=== PATIENT | female | born 1980 | race African-American/Black ===

== ENCOUNTER 2016-03-15 22:37 | Emergency (ER) | payer OTHER ==
[~2016-03-15] VITALS: Ht 170.2 cm; Wt 79.2 kg
[~2016-03-15 22:37] MED LIST: ADVAIR 250-501 EACH IH; ADVAIR 250/501 DISK IH; ALBUTEROL SULF8.5 GM IH; ASACOL HD800 MG PO; AUGMENTIN875 MG PO; Amaryl PO; Asacol PO; Aspirin E.C. PO; Augmentin PO; BACTRIM,SEPT1 TABLET PO; BENTYL10 MG PO; BENTYL20 MG PO; CALCIUM CARBONATE PO; CEFTIN500 MG PO; CIPRO500 MG PO; DAILY VITAMIN1 EAC4 PO; DAILY VITAMIN1 EAC8 PO; DEPAKOTE125 MG PO; DEPAKOTE500 MG PO; DIABETA5 MG PO; DILAUDID2 MG PO; DURAGESIC75 MCG TD; Depakote PO; ENDOCET 5-3251 EACH PO; FENTANYL1 EAC1 TD; FEOSOL PO; FEOSOL325 MG PO; FEROSUL325 MG PO; FLAGYL PO; FLAGYL500 MG PO; Flagyl PO; GLUCOPHAGE XR,500 MG PO; GLUCOPHAGE XR500 MG PO; GLUCOPHAGE1000 MG PO; GLUCOPHAGE500 MG PO; GLUCOTROL5 MG PO; Glucophage PO; Glucotrol PO; HUMALOG100 UNIT/1 SC; HUMALOG100 UNIT/2; HUMALOG100 UNITS/ SC; HUMULIN; HUMULIN 50100 UNIT/1 SQ; HYDROCHLOROTHIA25 MG PO; Humulin R SC; KEFLEX500 MG PO; KLONOPIN1 MG PO; LANTUS 10100 UNITS/ SC; LANTUS 3 M100 UNITS1 SC; LANTUS100 UNIT/1 SQ; LANTUS100 UNIT/2 SQ; LEVAQUIN500 MG PO; LEVSIN0.125 MG PO; LISINOPRIL10 MG PO; LISINOPRIL40 MG PO; LORTAB 5-325 M1 EACH PO; LOW DOSE ASPIRI81 M1 PO; MACROBID100 MG PO; METOPROLOL SUC100 MG PO; METRONIDAZOLE500 MG PO; Motrin PO; NOVOLOG PE100 UNITS/ SC; OXAYDO5 MG PO; OXYCODONE HCL10 MG PO; OXYCODONE HCL5 MG PO; PENTASA250 MG PO; PENTASA500 MG PO; PERCOCET 5/31 TABLET PO; PREDNISONE PO; PRINIVIL10 MG PO; PROBIOTIC1 EAC1 PO; PROMETHAZINE HC25 M1 PO; PROTONIX40 MG PO; PROVENTIL17 GM IH; PROZAC20 MG PO; PROzac PO; PYRIDIUM200 MG PO; Percocet 5/325,Endoc PO; REGLAN10 MG PO; REMERON30 M2 PO; REMICAID; TENORMIN50 MG PO; TOPROL PO; TOPROL XL100 MG PO; TOPROL XL50 MG PO; TOPROL XL6.25 MG PO; TYLENOL WITH C1 EACH PO; Tenormin PO; Ultram PO; VANCOCIN 250 M250 MG PO; VANCOCIN HCL125 MG PO; VANCOMYCIN HCL125 MG PO; VANCOMYCIN HCL250 MG PO; VENTOLIN HFA18 GM IH; VICODIN 5-3001 EACH PO; VITAMIN D; VITAMIN D1000 INTUN PO; VITAMIN D31000 UNIT PO; VITAMIN D3400 UNI1 PO; ZOFRAN ODT4 MG PO; ZOFRAN ODT4 MG SL; ZOFRAN ODT8 MG PO; ZOFRAN4 MG PO; predniSONE PO
[2016-03-15 23:46] LABS: HEMATOCRIT 32.1 % (36.0-46.0); MCH 29.1 PG (29.0-34.0); MCHC 32.7 G/DL (30.0-36.0); MCV 88.9 FL (83-99); MEAN PLAT.VOLUME 9.2 uM^3 (9.5-12.4); PLATELET COUNT 295 K/uL (156-360); RBC DIS.WIDTH-CV 15.9 % (11.8-14.6); RBC DIS.WIDTH-SD 50.3 % (39-53); RED BLOOD COUNT 3.61 M/uL (3.80-5.20); WHITE BLOOD COUNT 7.9 K/uL (4.1-10.2)
[2016-03-15 23:55] LABS: CHLORIDE 108 mEq/L (99-109); POTASSIUM 3.7 mEq/L (3.7-5.4); SODIUM 140 mEq/L (136-147)
[2016-03-15 23:57] LABS: GLUCOSE 143 mg/dL (70-99)
[2016-03-15 23:59] LABS: ANION GAP 4 MEQ/L (2-14); TOTAL BILIRUBIN 0.2 mg/dL (0.0-1.0)
[2016-03-16 00:01] LABS: ALKALINE PHOSPHATASE 84 IU/L (3-129); GFR ESTIMATE (CALCULATED) > 59 mL/min/
[2016-03-16 00:02] LABS: UREA NITROGEN (BUN) 10 mg/dL (9-23)
[2016-03-16 00:10] LABS: QUANTITATIVE HCG < 4.0 MIU/ML
[2016-03-16 03:31] LABS: ADD MIUA? YES; BILIRUBIN NEGATIVE; BLOOD SMALL; COLOR YELLOW ((YELLOW)); GLUCOSE (STRIP) NEGATIVE; KETONES NEGATIVE; LEUKOCYTES LARGE; NITRITE POSITIVE; PROTEIN (STRIP) TRACE; SPECIFIC GRAVITY 1.028 (1.000-1.030); UROBILINOGEN 0.2 MG/DL (0.2-1.0)
[2016-03-16 03:44] VITALS: BP 134/87
[2016-03-16 03:50] LABS: BACTERIA 4+; CASTS NONE SEEN /LPF; CRYSTALS NONE SEEN; EPITHELIAL CELLS 1+; MUCUS 1+; RED BLOOD CELLS RARE /HPF (0-5); UCUL ADDED? YES; WHITE BLOOD CELLS TNTC /HPF (0-5)
== END 2016-03-16 03:44 | disposition home or self-care (01) ==
LOC: EME 22:37 → RME 22:37
DX: R19.7 Diarrhea, unspecified (principal); R10.9 Unspecified abdominal pain; K50.90 Crohn's disease, unspecified, without complications; Z93.3 Colostomy status; Z85.038 Personal history of other malignant neoplasm of large intestine; R11.2 Nausea with vomiting, unspecified; I10 Essential (primary) hypertension; J45.909 Unspecified asthma, uncomplicated; E11.9 Type 2 diabetes mellitus without complications; Z79.4 Long term (current) use of insulin; F17.200 Nicotine dependence, unspecified, uncomplicated
CPT/HCPCS: 74176; 80053; 81003; 84702; 85027; 87077; 87086; 87186; 87493; 99281; 99284

== ENCOUNTER 2016-03-24 20:32 | Emergency (ER) | payer OTHER ==
[~2016-03-24] VITALS: Ht 170.2 cm; Wt 78.6 kg
[2016-03-24 21:20] LABS: HEMATOCRIT 33.4 % (36.0-46.0); MCH 28.9 PG (29.0-34.0); MCHC 32.3 G/DL (30.0-36.0); MCV 89.3 FL (83-99); MEAN PLAT.VOLUME 9.2 uM^3 (9.5-12.4); PLATELET COUNT 306 K/uL (156-360); RBC DIS.WIDTH-CV 15.6 % (11.8-14.6); RBC DIS.WIDTH-SD 50.3 % (39-53); RED BLOOD COUNT 3.74 M/uL (3.80-5.20); WHITE BLOOD COUNT 7.7 K/uL (4.1-10.2)
[2016-03-24 21:22] LABS: ADD MIUA? YES; BILIRUBIN NEGATIVE; BLOOD TRACE; COLOR YELLOW ((YELLOW)); GLUCOSE (STRIP) NEGATIVE; KETONES NEGATIVE; LEUKOCYTES LARGE; PH, URINE 5.5 (5-8); PROTEIN (STRIP) 30; SPECIFIC GRAVITY 1.025 (1.000-1.030); UROBILINOGEN 0.2 MG/DL (0.2-1.0)
[2016-03-24 21:28] LABS: CHLORIDE 106 mEq/L (99-109); POTASSIUM 4.3 mEq/L (3.7-5.4); SODIUM 137 mEq/L (136-147)
[2016-03-24 21:31] LABS: GLUCOSE 108 mg/dL (70-99)
[2016-03-24 21:32] LABS: ANION GAP 8 MEQ/L (2-14)
[2016-03-24 21:33] LABS: TOTAL BILIRUBIN 0.2 mg/dL (0.0-1.0)
[2016-03-24 21:34] LABS: ALKALINE PHOSPHATASE 83 IU/L (3-129); GFR ESTIMATE (CALCULATED) > 59 mL/min/
[2016-03-24 21:35] LABS: UREA NITROGEN (BUN) 15 mg/dL (9-23)
[2016-03-24] MEDS ORDERED: PREDNISONE20 MG PO (21:41)
[2016-03-24] MEDS ORDERED: BENTYL10 MG PO (21:41)
[2016-03-24 21:43] LABS: QUANTITATIVE HCG < 4.0 MIU/ML
[2016-03-24 21:46] LABS: BACTERIA 3+; EPITHELIAL CELLS 1+; MUCUS 1+; UCUL ADDED? YES; WHITE BLOOD CELLS 40-50 /HPF (0-5)
[2016-03-24 21:47] LABS: CASTS NONE SEEN /LPF; CRYSTALS NONE SEEN; NITRITE POSITIVE
[2016-03-24 22:29] VITALS: BP 144/90
== END 2016-03-24 22:36 | disposition home or self-care (01) ==
LOC: EME 20:32 → RME 20:32
DX: R10.9 Unspecified abdominal pain (principal); K50.90 Crohn's disease, unspecified, without complications; E11.9 Type 2 diabetes mellitus without complications; I10 Essential (primary) hypertension; F17.200 Nicotine dependence, unspecified, uncomplicated; Z93.2 Ileostomy status; Z85.038 Personal history of other malignant neoplasm of large intestine
CPT/HCPCS: 80053; 81003; 84702; 85027; 87077; 87086; 87186; 99281; 99284; J7512

== ENCOUNTER 2016-04-06 12:00 | Emergency (ER) | payer OTHER ==
[~2016-04-06] VITALS: Ht 170.2 cm; Wt 76.2 kg
[~2016-04-06 12:00] MED LIST changes: +PREDNISONE20 MG PO
[2016-04-06] MEDS ORDERED: TYLENOL WITH C1 EACH PO (14:17)
[2016-04-06 14:31] VITALS: BP 129/87
[2016-04-06] MEDS ORDERED: ROXICODONE5 MG PO (15:31)
== END 2016-04-06 14:32 | disposition home or self-care (01) ==
LOC: EME 12:00
PROC: 0T9B70Z Drainage of Bladder with Drainage Device, Via Natural or Artificial Opening (ICD-10-PCS; principal; 2016-04-06)
DX: Z46.6 Encounter for fitting and adjustment of urinary device (principal); E11.9 Type 2 diabetes mellitus without complications; I10 Essential (primary) hypertension; I25.2 Old myocardial infarction; F17.200 Nicotine dependence, unspecified, uncomplicated; Z87.442 Personal history of urinary calculi; Z88.6 Allergy status to analgesic agent
CPT/HCPCS: 99281; 99284

== ENCOUNTER 2016-05-02 11:19 | Emergency (ER) | payer OTHER ==
[~2016-05-02] VITALS: Ht 170.2 cm; Wt 77.4 kg
[~2016-05-02 11:19] MED LIST changes: +ROXICODONE5 MG PO
[2016-05-02 14:41] VITALS: BP 117/82
== END 2016-05-02 14:43 | disposition home or self-care (01) ==
LOC: EME 11:19
PROC: 0T9B70Z Drainage of Bladder with Drainage Device, Via Natural or Artificial Opening (ICD-10-PCS; principal; 2016-05-02)
DX: Z46.6 Encounter for fitting and adjustment of urinary device (principal); E11.9 Type 2 diabetes mellitus without complications; I10 Essential (primary) hypertension; Z87.442 Personal history of urinary calculi; I25.2 Old myocardial infarction; K21.9 Gastro-esophageal reflux disease without esophagitis; Z93.2 Ileostomy status; Z85.038 Personal history of other malignant neoplasm of large intestine; Z79.4 Long term (current) use of insulin; F17.200 Nicotine dependence, unspecified, uncomplicated
CPT/HCPCS: 81003; 99281; 99283

== ENCOUNTER 2016-05-13 19:48 | Emergency (ER) | payer OTHER ==
[~2016-05-13] VITALS: Ht 170.2 cm; Wt 76.7 kg
[2016-05-13 20:31] LABS: CHLORIDE 109 mEq/L (99-109); SODIUM 142 mEq/L (136-147)
[2016-05-13 20:33] LABS: GLUCOSE 122 mg/dL (70-99)
[2016-05-13 20:34] LABS: HEMATOCRIT 33.8 % (36.0-46.0); MCH 28.5 PG (29.0-34.0); MCHC 31.7 G/DL (30.0-36.0); MCV 89.9 FL (83-99); MEAN PLAT.VOLUME 9.3 uM^3 (9.5-12.4); PLATELET COUNT 308 K/uL (156-360); RBC DIS.WIDTH-CV 14.6 % (11.8-14.6); RED BLOOD COUNT 3.76 M/uL (3.80-5.20); WHITE BLOOD COUNT 7.3 K/uL (4.1-10.2)
[2016-05-13 20:35] LABS: ANION GAP 6 MEQ/L (2-14); TOTAL BILIRUBIN 0.2 mg/dL (0.0-1.0)
[2016-05-13 20:37] LABS: ALKALINE PHOSPHATASE 99 IU/L (3-129); GFR ESTIMATE (CALCULATED) > 59 mL/min/
[2016-05-13 20:38] LABS: UREA NITROGEN (BUN) 10 mg/dL (9-23)
[2016-05-13 20:46] LABS: QUANTITATIVE HCG < 4.0 MIU/ML
[2016-05-13 20:56] VITALS: BP 135/86
== END 2016-05-13 20:57 | disposition home or self-care (01) ==
LOC: EME 19:48
DX: R10.12 Left upper quadrant pain (principal); R11.2 Nausea with vomiting, unspecified; R19.7 Diarrhea, unspecified; E11.9 Type 2 diabetes mellitus without complications; Z79.4 Long term (current) use of insulin; Z79.891 Long term (current) use of opiate analgesic; Z85.038 Personal history of other malignant neoplasm of large intestine; J45.909 Unspecified asthma, uncomplicated; F17.200 Nicotine dependence, unspecified, uncomplicated
CPT/HCPCS: 74000; 80053; 81003; 84702; 85027; 99281; 99283

== ENCOUNTER 2016-05-31 20:18 | Emergency (ER) | payer OTHER ==
[~2016-05-31] VITALS: Ht 170.2 cm; Wt 79.6 kg
[2016-05-31 21:39] VITALS: BP 132/87
== END 2016-05-31 21:39 | disposition home or self-care (01) ==
LOC: EME 20:18 → EXP 20:18
PROC: 0T2BX0Z Change Drainage Device in Bladder, External Approach (ICD-10-PCS; principal; 2016-05-31)
DX: T83.021A Displacement of indwelling urethral catheter, initial encounter (principal); E11.9 Type 2 diabetes mellitus without complications; Z79.4 Long term (current) use of insulin; J45.909 Unspecified asthma, uncomplicated; Z85.038 Personal history of other malignant neoplasm of large intestine; Z87.891 Personal history of nicotine dependence
CPT/HCPCS: 99281; 99284

== ENCOUNTER 2016-07-01 18:07 | Emergency (ER) | payer OTHER ==
[~2016-07-01] VITALS: Ht 170.2 cm; Wt 77.1 kg
[2016-07-01 18:20] VITALS: BP 165/89
== END 2016-07-01 18:49 | disposition left against medical advice (07) ==
LOC: EME 18:07
DX: K50.90 Crohn's disease, unspecified, without complications (principal); Z53.21 Procedure and treatment not carried out due to patient leaving prior to being seen by health care provider

== ENCOUNTER 2016-07-20 12:55 | Emergency (ER) | payer OTHER | END 2016-07-20 13:07 | disposition left against medical advice (07) | LOC: EME 12:55 | DX: R10.9 Unspecified abdominal pain (principal); Z53.21 Procedure and treatment not carried out due to patient leaving prior to being seen by health care provider ==

== ENCOUNTER 2016-07-28 11:45 | Inpatient (IN) | payer OTHER ==
[~2016-07-28] VITALS: Ht 170.2 cm; Wt 81.4 kg
[2016-07-28] MEDS ORDERED: METHADONE HCL40 MG PO (13:08)
[2016-07-28 14:19] LABS: EOSINOPHIL (%) 0.8 % (0-5); EOSINOPHIL COUNT 0.1 K/uL (0-0.3); HEMATOCRIT 41.4 % (36.0-46.0); IMMATURE GRANULOCYTE (%) 0.6 % (0.0-0.7); INSTRUMENT ABS NEUTROPHIL CT 3.9 K/uL; LYMPHOCYTE COUNT 1.8 K/uL (1.0-2.8); MCH 28.9 PG (29.0-34.0); MCHC 32.1 G/DL (30.0-36.0); MONOCYTE COUNT 0.6 K/uL (0-0.8); NEUTROPHIL (%) 61.4 % (45-76); NEUTROPHIL COUNT 3.9 K/uL (1.8-6.4); PLATELET COUNT 229 K/uL (156-360); RBC DIS.WIDTH-CV 14.3 % (11.8-14.6); RBC DIS.WIDTH-SD 47.3 % (39-53); WHITE BLOOD COUNT 6.4 K/uL (4.1-10.2)
[2016-07-28 14:31] LABS: CHLORIDE 101 mEq/L (99-109); POTASSIUM 4.1 mEq/L (3.7-5.4); SODIUM 137 mEq/L (136-147)
[2016-07-28 14:33] LABS: GLUCOSE 95 mg/dL (70-99)
[2016-07-28 14:34] LABS: ANION GAP 15 MEQ/L (2-14)
[2016-07-28 14:35] LABS: TOTAL BILIRUBIN 0.4 mg/dL (0.0-1.0)
[2016-07-28 14:37] LABS: ALKALINE PHOSPHATASE 88 IU/L (3-129); GFR ESTIMATE (CALCULATED) > 59 mL/min/
[2016-07-28 14:38] LABS: UREA NITROGEN (BUN) 12 mg/dL (9-23)
[2016-07-28 14:40] LABS: LIPASE 23 U/L (1.0-51.0)
[2016-07-28 15:07] VITALS: BP 158/88
[2016-07-28 15:08] LABS: ADD MIUA? YES; BILIRUBIN NEGATIVE; BLOOD MODERATE; COLOR YELLOW ((YELLOW)); GLUCOSE (STRIP) NEGATIVE; KETONES 20; LEUKOCYTES MODERATE; NITRITE POSITIVE; PROTEIN (STRIP) 100; SPECIFIC GRAVITY 1.016 (1.000-1.030); UROBILINOGEN 0.2 MG/DL (0.2-1.0)
[2016-07-28 15:45] LABS: CASTS NONE SEEN /LPF; EPITHELIAL CELLS 3+ /HPF; MUCUS 1+ /LPF
[2016-07-28 15:46] LABS: BACTERIA 4+ /HPF; RED BLOOD CELLS 0-5 /HPF (0-5); WHITE BLOOD CELLS 30-40 /HPF (0-5)
[2016-07-28] MEDS ORDERED: HUMALOG100 UNIT/2 SC (16:37)
[2016-07-28] MEDS ORDERED: LANTUS 3 M100 UNITS1 SC (16:39)
[2016-07-29 08:15] VITALS: BP 133/78
[2016-07-29 09:32] LABS: ANION GAP 9 MEQ/L (2-14); CHLORIDE 103 MEQ/L (99-109); GFR ESTIMATE (CALCULATED) > 59 mL/min/; GLUCOSE 140 mg/dL (70-99); POTASSIUM 3.6 MEQ/L (3.7-5.4); SAMPLE HEMOLYSIS CHECK 0; SAMPLE ICTERIC CHECK 0; SAMPLE LIPEMIA CHECK 0; SODIUM 136 MEQ/L (136-147); UREA NITROGEN (BUN) 11 mg/dL (9-23)
[2016-07-29 09:34] LABS: HEMATOCRIT 34.6 % (36.0-46.0); MCH 28.8 PG (29.0-34.0); MCHC 32.1 G/DL (30.0-36.0); MCV 89.9 FL (83-99); MEAN PLAT.VOLUME 9.2 uM^3 (9.5-12.4); RBC DIS.WIDTH-SD 46.2 % (39-53); RED BLOOD COUNT 3.85 M/uL (3.80-5.20)
[2016-07-29 09:35] LABS: PLATELET COUNT 309 K/uL (156-360)
[2016-07-30 07:10] VITALS: BP 154/85
[2016-07-30 10:47] LABS: EOSINOPHIL (%) 2.2 % (0-5); EOSINOPHIL COUNT 0.1 K/uL (0-0.3); HEMATOCRIT 31.5 % (36.0-46.0); IMMATURE GRANULOCYTE (%) 0.4 % (0.0-0.7); INSTRUMENT ABS NEUTROPHIL CT 2.9 K/uL; LYMPHOCYTE COUNT 1.3 K/uL (1.0-2.8); MCH 30.1 PG (29.0-34.0); MEAN PLAT.VOLUME 9.5 uM^3 (9.5-12.4); MONOCYTE (%) 12.7 % (3-12); MONOCYTE COUNT 0.6 K/uL (0-0.8); NEUTROPHIL (%) 58.3 % (45-76); NEUTROPHIL COUNT 2.9 K/uL (1.8-6.4); PLATELET COUNT 269 K/uL (156-360); RBC DIS.WIDTH-CV 14.2 % (11.8-14.6); RBC DIS.WIDTH-SD 47.4 % (39-53); RED BLOOD COUNT 3.46 M/uL (3.80-5.20)
[2016-07-30 11:10] LABS: ANION GAP 8 MEQ/L (2-14); CHLORIDE 106 MEQ/L (99-109); GFR ESTIMATE (CALCULATED) > 59 mL/min/; GLUCOSE 145 mg/dL (70-99); POTASSIUM 3.8 MEQ/L (3.7-5.4); SAMPLE HEMOLYSIS CHECK 0; SAMPLE ICTERIC CHECK 0; SAMPLE LIPEMIA CHECK 0; SODIUM 135 MEQ/L (136-147); UREA NITROGEN (BUN) 6 mg/dL (9-23)
[2016-07-30 15:46] VITALS: BP 120/67
[2016-07-30 22:31] VITALS: BP 119/83
[2016-07-31 07:17] VITALS: BP 127/77
[2016-07-31 07:43] LABS: HEMATOCRIT 33.8 % (36.0-46.0); MCHC 32.2 G/DL (30.0-36.0); MCV 89.9 FL (83-99); MEAN PLAT.VOLUME 9.4 uM^3 (9.5-12.4); PLATELET COUNT 316 K/uL (156-360); RBC DIS.WIDTH-CV 14.2 % (11.8-14.6); RED BLOOD COUNT 3.76 M/uL (3.80-5.20); WHITE BLOOD COUNT 6.1 K/uL (4.1-10.2)
[2016-07-31 08:05] LABS: CHLORIDE 108 mEq/L (99-109); POTASSIUM 3.9 mEq/L (3.7-5.4); SODIUM 138 mEq/L (136-147)
[2016-07-31 08:08] LABS: ANION GAP 9 MEQ/L (2-14); GLUCOSE 74 mg/dL (70-99)
[2016-07-31 08:11] LABS: GFR ESTIMATE (CALCULATED) > 59 mL/min/
[2016-07-31 08:12] LABS: UREA NITROGEN (BUN) 7 mg/dL (9-23)
[2016-07-31 08:39] LABS: ABS NEUTROPHIL COUNT 3.6; ANISOCYTOSIS 1+; BAND NEUTROPHILS 0.9 % (0-8.0); EOSINOPHIL ABS CT 0.5; EOSINOPHILS 8.8 % (0-5.0); INSTRUMENT ABS NEUTROPHIL CT 2.9 K/uL; LYMPHOCYTES 24.8 % (15.0-45.0); MACROCYTES 1+; MYELOCYTES 0.9 %; PLAT.SUFFICIENCY ADEQUATE; SEG.NEUTROPHILS 57.5 % (46.0-76.0)
[2016-07-31 15:25] VITALS: BP 130/78
[2016-08-01 00:01] VITALS: BP 116/68
[2016-08-01 05:51] LABS: POINT-OF-CARE METER ID UU13113725
[2016-08-01] MEDS ORDERED: COLO-40 MC (08:14)
[2016-08-01] MEDS ORDERED: LEVAQUIN500 MG PO (08:14)
[2016-08-01] MEDS ORDERED: TRAMADOL HCL50 MG PO (08:14)
[2016-08-01 09:42] VITALS: BP 109/55
== END 2016-08-01 10:35 | disposition home or self-care (01) | DRG 389 ==
LOC: EXP 11:45 → EME 11:45 → 5EAST 16:45 → EDOF 16:45 → 5EAST 19:25
PROVIDERS: Internal Medicine; Physician Assistant; Surgery
DX: K56.5 Intestinal adhesions [bands] with obstruction (postinfection) (principal); K50.90 Crohn's disease, unspecified, without complications; N39.0 Urinary tract infection, site not specified; I10 Essential (primary) hypertension; N39.498 Other specified urinary incontinence; F11.20 Opioid dependence, uncomplicated; N31.9 Neuromuscular dysfunction of bladder, unspecified; K21.9 Gastro-esophageal reflux disease without esophagitis; E11.9 Type 2 diabetes mellitus without complications; F31.9 Bipolar disorder, unspecified; Z88.5 Allergy status to narcotic agent; Z93.2 Ileostomy status; Z87.442 Personal history of urinary calculi; Z87.440 Personal history of urinary (tract) infections; Z79.4 Long term (current) use of insulin; Z90.49 Acquired absence of other specified parts of digestive tract; Z79.84 Long term (current) use of oral hypoglycemic drugs; Z87.891 Personal history of nicotine dependence; Z83.79 Family history of other diseases of the digestive system; Z82.49 Family history of ischemic heart disease and other diseases of the circulatory system
CPT/HCPCS: 74177; 80048; 80053; 81003; 82948; 83690; 85025; 85027; 87040; 94640; 94640 76; 99281; 99285; J1170; J1815; J1885; J1956; J2405; J2765; J3010; J7030; J7050; S0028

== ENCOUNTER 2016-10-29 13:32 | Emergency (ER) | payer OTHER ==
[~2016-10-29] VITALS: Ht 170.2 cm; Wt 72.9 kg
[~2016-10-29 13:32] MED LIST changes: +COLO-40 MC; +HUMALOG100 UNIT/2 SC; +METHADONE HCL40 MG PO; +TRAMADOL HCL50 MG PO
[2016-10-29 14:45] LABS: MCH 28.8 PG (29.0-34.0); MCHC 32.3 G/DL (30.0-36.0); MCV 89.3 FL (83-99); MEAN PLAT.VOLUME 9.8 uM^3 (9.5-12.4); PLATELET COUNT 292 K/uL (156-360); RBC DIS.WIDTH-CV 14.3 % (11.8-14.6); RBC DIS.WIDTH-SD 46.2 % (39-53); RED BLOOD COUNT 3.92 M/uL (3.80-5.20); WHITE BLOOD COUNT 7.9 K/uL (4.1-10.2)
[2016-10-29 14:47] LABS: ADD MIUA? YES; BILIRUBIN NEGATIVE; BLOOD SMALL; COLOR YELLOW ((YELLOW)); GLUCOSE (STRIP) NEGATIVE; KETONES 5; LEUKOCYTES TRACE; NITRITE NEGATIVE; PROTEIN (STRIP) 30; UROBILINOGEN 0.2 MG/DL (0.2-1.0)
[2016-10-29 14:58] LABS: BACTERIA NONE SEEN /HPF; EPITHELIAL CELLS 1+ /HPF; MUCUS 3+ /LPF; RED BLOOD CELLS 0-5 /HPF (0-5); UCUL ADDED? YES
[2016-10-29 15:00] LABS: CHLORIDE 106 mEq/L (99-109); POTASSIUM 4.2 mEq/L (3.7-5.4); SODIUM 139 mEq/L (136-147)
[2016-10-29 15:02] LABS: GLUCOSE 119 mg/dL (70-99)
[2016-10-29 15:03] LABS: ANION GAP 10 MEQ/L (2-14)
[2016-10-29 15:04] LABS: TOTAL BILIRUBIN 0.4 mg/dL (0.0-1.0)
[2016-10-29 15:05] LABS: ALKALINE PHOSPHATASE 98 IU/L (3-129)
[2016-10-29 15:06] LABS: GFR ESTIMATE (CALCULATED) > 59 mL/min/
[2016-10-29 15:07] LABS: UREA NITROGEN (BUN) 10 mg/dL (9-23)
[2016-10-29 15:14] LABS: QUANTITATIVE HCG < 4.0 MIU/ML
[2016-10-29] MEDS ORDERED: PERCOCET 5/31 TABLET PO (20:42)
[2016-10-29] MEDS ORDERED: ZOFRAN4 MG PO (20:42)
[2016-10-29 21:16] VITALS: BP 158/91
== END 2016-10-29 21:17 | disposition home or self-care (01) ==
LOC: EME 13:32
DX: R07.9 Chest pain, unspecified (principal); R10.31 Right lower quadrant pain; Z93.3 Colostomy status; K21.9 Gastro-esophageal reflux disease without esophagitis; J45.909 Unspecified asthma, uncomplicated; I10 Essential (primary) hypertension; E11.9 Type 2 diabetes mellitus without complications; I25.2 Old myocardial infarction; Z87.442 Personal history of urinary calculi; Z86.73 Personal history of transient ischemic attack (TIA), and cerebral infarction without residual deficits; Z79.4 Long term (current) use of insulin; Z79.84 Long term (current) use of oral hypoglycemic drugs; Z87.891 Personal history of nicotine dependence
CPT/HCPCS: 74176; 80053; 81003; 84702; 85027; 87077; 87086; 87186; 99281; 99285; J2405; J3010; J7050

== ENCOUNTER 2016-11-17 14:34 | Emergency (ER) | payer OTHER ==
[~2016-11-17] VITALS: Ht 170.2 cm; Wt 74.1 kg
[2016-11-17 16:51] LABS: HEMATOCRIT 36.3 % (36.0-46.0); MCH 29.5 PG (29.0-34.0); MCHC 32.8 G/DL (30.0-36.0); MCV 90.1 FL (83-99); MEAN PLAT.VOLUME 9.5 uM^3 (9.5-12.4); PLATELET COUNT 333 K/uL (156-360); RBC DIS.WIDTH-CV 14.6 % (11.8-14.6); RBC DIS.WIDTH-SD 48.7 % (39-53); RED BLOOD COUNT 4.03 M/uL (3.80-5.20); WHITE BLOOD COUNT 8.8 K/uL (4.1-10.2)
[2016-11-17 17:04] LABS: CHLORIDE 103 mEq/L (99-109); POTASSIUM 3.8 mEq/L (3.7-5.4); SODIUM 139 mEq/L (136-147)
[2016-11-17 17:07] LABS: ANION GAP 13 MEQ/L (2-14); GLUCOSE 81 mg/dL (70-99)
[2016-11-17 17:08] LABS: TOTAL BILIRUBIN 0.3 mg/dL (0.0-1.0)
[2016-11-17 17:10] LABS: GFR ESTIMATE (CALCULATED) > 59 mL/min/
[2016-11-17 17:11] LABS: UREA NITROGEN (BUN) 9 mg/dL (9-23)
[2016-11-17 17:20] LABS: QUANTITATIVE HCG < 4.0 MIU/ML
[2016-11-17 17:49] LABS: ALKALINE PHOSPHATASE 85 IU/L (3-129)
[2016-11-17 17:53] LABS: LIPASE 15 U/L (1.0-51.0)
[2016-11-17 18:49] LABS: ADD MIUA? YES; BILIRUBIN NEGATIVE; BLOOD SMALL; COLOR YELLOW ((YELLOW)); GLUCOSE (STRIP) NEGATIVE; KETONES NEGATIVE; LEUKOCYTES LARGE; NITRITE POSITIVE; PROTEIN (STRIP) 30; SPECIFIC GRAVITY 1.016 (1.000-1.030); UROBILINOGEN 0.2 MG/DL (0.2-1.0)
[2016-11-17 19:15] LABS: BACTERIA 2+ /HPF; EPITHELIAL CELLS 3+ /HPF; UCUL ADDED? YES; WHITE BLOOD CELLS 30-40 /HPF (0-5)
[2016-11-17 19:19] LABS: MUCUS TRACE /LPF; RED BLOOD CELLS 15-20 /HPF (0-5); WHITE BLOOD CELLS CLUMP FEW /HPF (0-5)
[2016-11-17] MEDS ORDERED: ZOFRAN ODT4 MG PO (20:27)
[2016-11-17] MEDS ORDERED: PYRIDIUM200 MG PO (20:27)
[2016-11-17] MEDS ORDERED: MACROBID100 MG PO (20:27)
[2016-11-17 21:23] VITALS: BP 139/93
[2016-11-17 21:42] LABS: INTERNAL CONTROL VALID? YES
[2016-11-17 22:18] LABS: C DIFF TOXIN NEGATIVE (NEGATIVE)
[2016-11-17 22:25] LABS: PROBE CHECK PASS; SPECIMEN PROCESSING CONTROL PASS
== END 2016-11-17 21:24 | disposition home or self-care (01) ==
LOC: EME 14:34
PROVIDERS: Physician Assistant
DX: N39.0 Urinary tract infection, site not specified (principal); I12.9 Hypertensive chronic kidney disease with stage 1 through stage 4 chronic kidney disease, or unspecified chronic kidney disease; N18.9 Chronic kidney disease, unspecified; E11.22 Type 2 diabetes mellitus with diabetic chronic kidney disease; Z79.4 Long term (current) use of insulin; J45.909 Unspecified asthma, uncomplicated; N31.9 Neuromuscular dysfunction of bladder, unspecified; I25.2 Old myocardial infarction; K50.90 Crohn's disease, unspecified, without complications; K21.9 Gastro-esophageal reflux disease without esophagitis; F32.9 Major depressive disorder, single episode, unspecified; F41.9 Anxiety disorder, unspecified; Z93.2 Ileostomy status; Z86.73 Personal history of transient ischemic attack (TIA), and cerebral infarction without residual deficits; Z85.038 Personal history of other malignant neoplasm of large intestine; Z90.49 Acquired absence of other specified parts of digestive tract; Z92.21 Personal history of antineoplastic chemotherapy; Z87.442 Personal history of urinary calculi; Z87.891 Personal history of nicotine dependence
CPT/HCPCS: 74176; 80053; 81003; 83630; 83690; 84702; 85027; 87077; 87086; 87186; 87493; 87506; J1885; J2405; J3010; J7030

== ENCOUNTER 2016-11-28 09:18 | Emergency (ER) | payer OTHER ==
[~2016-11-28] VITALS: Ht 170.2 cm; Wt 73.8 kg
[2016-11-28 10:27] LABS: HEMATOCRIT 35.5 % (36.0-46.0); MCH 29.2 PG (29.0-34.0); MCHC 32.1 G/DL (30.0-36.0); MCV 90.8 FL (83-99); MEAN PLAT.VOLUME 10.2 uM^3 (9.5-12.4); PLATELET COUNT 294 K/uL (156-360); RBC DIS.WIDTH-CV 14.5 % (11.8-14.6); RBC DIS.WIDTH-SD 48.4 % (39-53); RED BLOOD COUNT 3.91 M/uL (3.80-5.20); WHITE BLOOD COUNT 4.7 K/uL (4.1-10.2)
[2016-11-28 11:40] LABS: CHLORIDE 107 mEq/L (99-109); POTASSIUM 4.7 mEq/L (3.7-5.4); SODIUM 140 mEq/L (136-147)
[2016-11-28 11:42] LABS: GLUCOSE 76 mg/dL (70-99)
[2016-11-28 11:43] LABS: ANION GAP 13 MEQ/L (2-14)
[2016-11-28 11:44] LABS: TOTAL BILIRUBIN 0.4 mg/dL (0.0-1.0)
[2016-11-28 11:45] LABS: ALKALINE PHOSPHATASE 174 IU/L (3-129)
[2016-11-28 11:46] LABS: GFR ESTIMATE (CALCULATED) > 59 mL/min/
[2016-11-28 11:47] LABS: UREA NITROGEN (BUN) 5 mg/dL (9-23)
[2016-11-28 12:16] LABS: LIPASE 14 U/L (1.0-51.0)
[2016-11-28] MEDS ORDERED: PREDNISONE20 MG PO (15:19)
[2016-11-28 15:46] VITALS: BP 135/90
== END 2016-11-28 15:45 | disposition home or self-care (01) ==
LOC: EME 09:18
DX: K50.90 Crohn's disease, unspecified, without complications (principal); I12.9 Hypertensive chronic kidney disease with stage 1 through stage 4 chronic kidney disease, or unspecified chronic kidney disease; N18.9 Chronic kidney disease, unspecified; E11.22 Type 2 diabetes mellitus with diabetic chronic kidney disease; J45.909 Unspecified asthma, uncomplicated; K21.9 Gastro-esophageal reflux disease without esophagitis; I25.2 Old myocardial infarction; N31.9 Neuromuscular dysfunction of bladder, unspecified; F41.9 Anxiety disorder, unspecified; F32.9 Major depressive disorder, single episode, unspecified; Z86.73 Personal history of transient ischemic attack (TIA), and cerebral infarction without residual deficits; Z87.442 Personal history of urinary calculi; Z85.038 Personal history of other malignant neoplasm of large intestine; Z79.4 Long term (current) use of insulin; Z90.49 Acquired absence of other specified parts of digestive tract; Z87.891 Personal history of nicotine dependence; Z93.2 Ileostomy status; Z92.21 Personal history of antineoplastic chemotherapy
CPT/HCPCS: 74176; 80053; 81003; 83690; 84702; 85027; 99281; 99285; J1200; J2405; J7030; J7512

== ENCOUNTER 2016-12-18 10:18 | Emergency (ER) | payer OTHER ==
[~2016-12-18] VITALS: Ht 170.2 cm; Wt 78.0 kg
[2016-12-18 11:11] LABS: HEMATOCRIT 35.6 % (36.0-46.0); MCH 28.8 PG (29.0-34.0); MCHC 31.7 G/DL (30.0-36.0); MCV 90.8 FL (83-99); MEAN PLAT.VOLUME 9.2 uM^3 (9.5-12.4); PLATELET COUNT 330 K/uL (156-360); RBC DIS.WIDTH-CV 15.3 % (11.8-14.6); RBC DIS.WIDTH-SD 50.8 % (39-53); RED BLOOD COUNT 3.92 M/uL (3.80-5.20); WHITE BLOOD COUNT 6.9 K/uL (4.1-10.2)
[2016-12-18 11:22] LABS: CHLORIDE 107 mEq/L (99-109); SODIUM 137 mEq/L (136-147)
[2016-12-18 11:24] LABS: GLUCOSE 109 mg/dL (70-99)
[2016-12-18 11:25] LABS: ANION GAP 7 MEQ/L (2-14)
[2016-12-18 11:26] LABS: TOTAL BILIRUBIN 0.4 mg/dL (0.0-1.0)
[2016-12-18 11:27] LABS: ALKALINE PHOSPHATASE 96 IU/L (3-129)
[2016-12-18 11:28] LABS: GFR ESTIMATE (CALCULATED) > 59 mL/min/
[2016-12-18 11:29] LABS: UREA NITROGEN (BUN) 6 mg/dL (9-23)
[2016-12-18 11:38] LABS: QUANTITATIVE HCG < 4.0 MIU/ML
[2016-12-18 13:23] LABS: LIPASE 19 U/L (1.0-51.0)
[2016-12-18] MEDS ORDERED: ZOFRAN ODT4 MG PO (13:40)
[2016-12-18] MEDS ORDERED: LEVSIN-SL0.125 MG SL (13:40)
[2016-12-18 14:10] VITALS: BP 133/83
== END 2016-12-18 14:11 | disposition home or self-care (01) ==
LOC: EME 10:18
DX: R10.84 Generalized abdominal pain (principal); K50.90 Crohn's disease, unspecified, without complications; Z93.2 Ileostomy status; I12.9 Hypertensive chronic kidney disease with stage 1 through stage 4 chronic kidney disease, or unspecified chronic kidney disease; N18.9 Chronic kidney disease, unspecified; E11.22 Type 2 diabetes mellitus with diabetic chronic kidney disease; Z79.4 Long term (current) use of insulin; J45.909 Unspecified asthma, uncomplicated; K21.9 Gastro-esophageal reflux disease without esophagitis; I25.2 Old myocardial infarction; F32.9 Major depressive disorder, single episode, unspecified; Z87.442 Personal history of urinary calculi; Z86.73 Personal history of transient ischemic attack (TIA), and cerebral infarction without residual deficits; Z88.8 Allergy status to other drugs, medicaments and biological substances; Z87.891 Personal history of nicotine dependence; F41.9 Anxiety disorder, unspecified
CPT/HCPCS: 80053; 81003; 83690; 84702; 85027; 99281; 99285

== ENCOUNTER 2017-01-28 07:08 | Emergency (ER) | payer OTHER ==
[~2017-01-28] VITALS: Ht 170.2 cm; Wt 74.0 kg
[~2017-01-28 07:08] MED LIST changes: +LEVSIN-SL0.125 MG SL
[2017-01-28 07:57] LABS: HEMATOCRIT 35.7 % (36.0-46.0); MCH 29.4 PG (29.0-34.0); MCHC 32.5 G/DL (30.0-36.0); MCV 90.4 FL (83-99); MEAN PLAT.VOLUME 9.2 uM^3 (9.5-12.4); PLATELET COUNT 296 K/uL (156-360); RBC DIS.WIDTH-SD 46.7 % (39-53); RED BLOOD COUNT 3.95 M/uL (3.80-5.20); WHITE BLOOD COUNT 5.5 K/uL (4.1-10.2)
[2017-01-28 08:30] LABS: ALKALINE PHOSPHATASE 98 IU/L (3-129); AMYLASE 60 IU/L (1-118); ANION GAP 9 MEQ/L (2-14); CHLORIDE 105 MEQ/L (99-109); GFR ESTIMATE (CALCULATED) > 59 mL/min/; GLUCOSE 95 mg/dL (70-99); LIPASE 56 U/L (1.0-51.0); POTASSIUM 3.8 MEQ/L (3.7-5.4); SAMPLE HEMOLYSIS CHECK 0; SAMPLE ICTERIC CHECK 0; SAMPLE LIPEMIA CHECK 0; SODIUM 140 MEQ/L (136-147); TOTAL BILIRUBIN 0.2 MG/DL (0.0-1.0); UREA NITROGEN (BUN) 10 mg/dL (9-23)
[2017-01-28 08:34] LABS: QUANTITATIVE HCG < 4.0 MIU/ML
[2017-01-28 09:00] LABS: ADD MIUA? YES; BILIRUBIN NEGATIVE; BLOOD SMALL; COLOR YELLOW ((YELLOW)); GLUCOSE (STRIP) NEGATIVE; KETONES NEGATIVE; LEUKOCYTES LARGE; NITRITE POSITIVE; PROTEIN (STRIP) NEGATIVE; SPECIFIC GRAVITY 1.018 (1.000-1.030); UROBILINOGEN 0.2 MG/DL (0.2-1.0)
[2017-01-28 09:50] LABS: EPITHELIAL CELLS 1+ /HPF; MUCUS NONE SEEN /LPF; RED BLOOD CELLS RARE /HPF (0-5); WHITE BLOOD CELLS 30-40 /HPF (0-5)
[2017-01-28 09:51] LABS: BACTERIA 1+ /HPF; UCUL ADDED? YES
[2017-01-28] MEDS ORDERED: ZOFRAN ODT4 MG PO (11:01)
[2017-01-28 11:19] VITALS: BP 122/80
== END 2017-01-28 11:21 | disposition home or self-care (01) ==
LOC: EME 07:08
PROVIDERS: Nurse Practitioner Family
DX: R10.12 Left upper quadrant pain (principal); R11.2 Nausea with vomiting, unspecified; M54.9 Dorsalgia, unspecified; N39.0 Urinary tract infection, site not specified; E11.22 Type 2 diabetes mellitus with diabetic chronic kidney disease; N18.9 Chronic kidney disease, unspecified; Z79.4 Long term (current) use of insulin; J45.909 Unspecified asthma, uncomplicated; Z85.038 Personal history of other malignant neoplasm of large intestine; Z90.49 Acquired absence of other specified parts of digestive tract; Z93.3 Colostomy status; Z87.442 Personal history of urinary calculi; Z87.440 Personal history of urinary (tract) infections; Z87.891 Personal history of nicotine dependence
CPT/HCPCS: 80053; 81003; 82150; 83690; 84702; 85027; 87077; 87086; 87186; 99281; 99285; J2405

== ENCOUNTER 2017-04-19 18:20 | Emergency (ER) | payer OTHER ==
[~2017-04-19] VITALS: Ht 170.2 cm; Wt 76.2 kg
[2017-04-19 19:31] LABS: HEMATOCRIT 36.9 % (36.0-46.0); HEMOGLOBIN 12.1 G/DL (11.9-15.5); MCH 29.2 PG (29.0-34.0); MCHC 32.8 G/DL (30.0-36.0); MCV 89.1 FL (83-99); PLATELET COUNT 316 K/uL (156-360); RBC DIS.WIDTH-SD 45.4 % (39-53); RED BLOOD COUNT 4.14 M/uL (3.80-5.20); WHITE BLOOD COUNT 7.5 K/uL (4.1-10.2)
[2017-04-19 19:42] LABS: ALBUMIN 4.4 g/dL (3.2-4.8)
[2017-04-19 19:43] LABS: CHLORIDE 104 mEq/L (99-109); POTASSIUM 4.1 mEq/L (3.7-5.4); SODIUM 137 mEq/L (136-147)
[2017-04-19 19:45] LABS: GLUCOSE 181 mg/dL (70-99); TOTAL PROTEIN 8.2 g/dL (6.4-8.3)
[2017-04-19 19:47] LABS: TOTAL BILIRUBIN 0.3 mg/dL (0.0-1.0)
[2017-04-19 19:48] LABS: ALKALINE PHOSPHATASE 87 IU/L (3-129)
[2017-04-19 19:49] LABS: GFR ESTIMATE (CALCULATED) > 59 mL/min/
[2017-04-19 19:50] LABS: AST (GOT) 21 IU/L (2-34); UREA NITROGEN (BUN) 16 mg/dL (9-23)
[2017-04-19 19:51] LABS: ALT (GPT) 16 IU/L (3-49)
[2017-04-19 19:52] LABS: LIPASE 24 U/L (1.0-51.0)
[2017-04-19 19:53] LABS: QUANTITATIVE HCG < 4.0 MIU/ML
[2017-04-19] MEDS ORDERED: CIPRO500 MG PO (22:40)
[2017-04-19 22:43] LABS: APPEARANCE CLEAR ((CLEAR)); BILIRUBIN NEGATIVE; BLOOD NEGATIVE; COLOR YELLOW ((YELLOW)); GLUCOSE (STRIP) NEGATIVE; KETONES NEGATIVE; LEUKOCYTES TRACE; NITRITE POSITIVE; PROTEIN (STRIP) NEGATIVE; UROBILINOGEN 0.2 MG/DL (0.2-1.0)
[2017-04-19 22:46] LABS: BACTERIA RARE /HPF; EPITHELIAL CELLS 3+ /HPF; MUCUS TRACE /LPF; RED BLOOD CELLS 0-5 /HPF (0-5); UCUL ADDED? NO; WHITE BLOOD CELLS 0-5 /HPF (0-5)
[2017-04-19 22:53] VITALS: BP 100/67
== END 2017-04-19 22:54 | disposition home or self-care (01) ==
LOC: EME 18:20
PROVIDERS: Emergency Medicine
DX: N39.0 Urinary tract infection, site not specified (principal); K50.911 Crohn's disease, unspecified, with rectal bleeding; I25.2 Old myocardial infarction; E11.22 Type 2 diabetes mellitus with diabetic chronic kidney disease; N18.9 Chronic kidney disease, unspecified; Z79.4 Long term (current) use of insulin; K21.9 Gastro-esophageal reflux disease without esophagitis; J45.909 Unspecified asthma, uncomplicated; F41.9 Anxiety disorder, unspecified; F32.9 Major depressive disorder, single episode, unspecified; F31.9 Bipolar disorder, unspecified; Z87.891 Personal history of nicotine dependence; Z86.73 Personal history of transient ischemic attack (TIA), and cerebral infarction without residual deficits; Z87.442 Personal history of urinary calculi; Z93.2 Ileostomy status; Z90.49 Acquired absence of other specified parts of digestive tract; Z88.5 Allergy status to narcotic agent; Z88.6 Allergy status to analgesic agent; Z88.1 Allergy status to other antibiotic agents
CPT/HCPCS: 74177; 80053; 81003; 83690; 84702; 85027; 99281; 99284; J2405; J3010; J7030

== ENCOUNTER 2017-04-26 16:33 | Emergency (ER) | payer OTHER ==
[~2017-04-26] VITALS: Ht 170.2 cm; Wt 79.0 kg
[2017-04-26 17:40] LABS: HEMATOCRIT 32.2 % (36.0-46.0); HEMOGLOBIN 10.7 G/DL (11.9-15.5); MCH 29.5 PG (29.0-34.0); MCHC 33.2 G/DL (30.0-36.0); MCV 88.7 FL (83-99); PLATELET COUNT 294 K/uL (156-360); RBC DIS.WIDTH-CV 13.9 % (11.8-14.6); RBC DIS.WIDTH-SD 45.4 % (39-53); RED BLOOD COUNT 3.63 M/uL (3.80-5.20); WHITE BLOOD COUNT 8.1 K/uL (4.1-10.2)
[2017-04-26 17:57] LABS: ALBUMIN 4.1 g/dL (3.2-4.8); CHLORIDE 106 mEq/L (99-109); POTASSIUM 3.5 mEq/L (3.7-5.4); SODIUM 139 mEq/L (136-147)
[2017-04-26 18:00] LABS: GLUCOSE 177 mg/dL (70-99); TOTAL PROTEIN 7.4 g/dL (6.4-8.3)
[2017-04-26 18:01] LABS: TOTAL BILIRUBIN 0.3 mg/dL (0.0-1.0)
[2017-04-26 18:03] LABS: ALKALINE PHOSPHATASE 80 IU/L (3-129); CREATININE 0.9 mg/dL (0.6-1.3); GFR ESTIMATE (CALCULATED) > 59 mL/min/
[2017-04-26 18:04] LABS: UREA NITROGEN (BUN) 7 mg/dL (9-23)
[2017-04-26 18:05] LABS: AST (GOT) 16 IU/L (2-34)
[2017-04-26 18:06] LABS: ALT (GPT) 10 IU/L (3-49)
[2017-04-26 18:15] LABS: QUANTITATIVE HCG < 4.0 MIU/ML
[2017-04-26 18:45] LABS: COLOR BLOODY ((YELLOW))
[2017-04-26 18:46] LABS: APPEARANCE BLOODY ((CLEAR)); BILIRUBIN NEGATIVE; BLOOD LARGE; GLUCOSE (STRIP) NEGATIVE; KETONES 5; LEUKOCYTES MODERATE; NITRITE NEGATIVE; PH, URINE 6.5 (5-8); PROTEIN (STRIP) 30; SPECIFIC GRAVITY 1.007 (1.000-1.030); UROBILINOGEN 0.2 MG/DL (0.2-1.0)
[2017-04-26 19:01] LABS: RED BLOOD CELLS TNTC /HPF (0-5)
[2017-04-26 19:02] LABS: UCUL ADDED? YES
[2017-04-26 19:11] VITALS: BP 141/93
== END 2017-04-26 19:12 | disposition left against medical advice (07) ==
LOC: EME 16:33
DX: R10.9 Unspecified abdominal pain (principal); G89.29 Other chronic pain; K21.9 Gastro-esophageal reflux disease without esophagitis; J45.909 Unspecified asthma, uncomplicated; E11.22 Type 2 diabetes mellitus with diabetic chronic kidney disease; N18.9 Chronic kidney disease, unspecified; K50.90 Crohn's disease, unspecified, without complications; Z93.2 Ileostomy status; Z85.038 Personal history of other malignant neoplasm of large intestine; I25.2 Old myocardial infarction; F31.9 Bipolar disorder, unspecified; F32.9 Major depressive disorder, single episode, unspecified; F41.9 Anxiety disorder, unspecified; Z87.442 Personal history of urinary calculi; Z86.73 Personal history of transient ischemic attack (TIA), and cerebral infarction without residual deficits; Z79.4 Long term (current) use of insulin; Z90.49 Acquired absence of other specified parts of digestive tract; Z87.891 Personal history of nicotine dependence; Z88.5 Allergy status to narcotic agent; Z88.6 Allergy status to analgesic agent; Z88.1 Allergy status to other antibiotic agents
CPT/HCPCS: 80053; 81003; 83605; 84702; 85027; 87040; 87086; 99281; 99285

== ENCOUNTER 2017-07-25 13:27 | Emergency (ER) | payer OTHER ==
[~2017-07-25] VITALS: Ht 170.2 cm; Wt 97.3 kg
[2017-07-25 15:44] LABS: HEMATOCRIT 35.2 % (36.0-46.0); HEMOGLOBIN 11.7 G/DL (11.9-15.5); MCH 30.1 PG (29.0-34.0); MCHC 33.2 G/DL (30.0-36.0); MCV 90.5 FL (83-99); RBC DIS.WIDTH-CV 15.5 % (11.8-14.6); RBC DIS.WIDTH-SD 50.5 % (39-53); RED BLOOD COUNT 3.89 M/uL (3.80-5.20); WHITE BLOOD COUNT 7.4 K/uL (4.1-10.2)
[2017-07-25 16:17] LABS: ALBUMIN 4.3 g/dL (3.2-4.8)
[2017-07-25 16:18] LABS: CHLORIDE 107 mEq/L (99-109); POTASSIUM 4.7 mEq/L (3.7-5.4); SODIUM 142 mEq/L (136-147)
[2017-07-25 16:20] LABS: GLUCOSE 83 mg/dL (70-99); TOTAL PROTEIN 7.9 g/dL (6.4-8.3)
[2017-07-25 16:22] LABS: PLATELET COUNT 344 K/uL (156-360)
[2017-07-25 16:22] LABS: TOTAL BILIRUBIN 0.2 mg/dL (0.0-1.0)
[2017-07-25 16:23] LABS: ALKALINE PHOSPHATASE 93 IU/L (3-129)
[2017-07-25 16:24] LABS: CREATININE 0.9 mg/dL (0.6-1.3); GFR ESTIMATE (CALCULATED) > 59 mL/min/
[2017-07-25 16:25] LABS: AST (GOT) 24 IU/L (2-34); UREA NITROGEN (BUN) 13 mg/dL (9-23)
[2017-07-25 16:27] LABS: ALT (GPT) 15 IU/L (3-49); LIPASE 22 U/L (1.0-51.0)
[2017-07-25 16:33] LABS: QUANTITATIVE HCG < 4.0 MIU/ML
[2017-07-25] MEDS ORDERED: ZOFRAN ODT4 MG PO (17:02)
[2017-07-25] MEDS ORDERED: BENTYL10 MG PO (17:02)
[2017-07-25] MEDS ORDERED: ULTRAM50 MG PO (17:05)
[2017-07-25 17:29] VITALS: BP 147/87
== END 2017-07-25 17:31 | disposition home or self-care (01) ==
LOC: EME 13:27
PROVIDERS: Nurse Practitioner Family
DX: R10.9 Unspecified abdominal pain (principal); R19.7 Diarrhea, unspecified; R11.2 Nausea with vomiting, unspecified; B34.9 Viral infection, unspecified; N28.1 Cyst of kidney, acquired; Z85.038 Personal history of other malignant neoplasm of large intestine; E11.22 Type 2 diabetes mellitus with diabetic chronic kidney disease; N18.9 Chronic kidney disease, unspecified; I25.2 Old myocardial infarction; J45.909 Unspecified asthma, uncomplicated; Z79.4 Long term (current) use of insulin; Z86.73 Personal history of transient ischemic attack (TIA), and cerebral infarction without residual deficits; Z87.442 Personal history of urinary calculi; Z90.49 Acquired absence of other specified parts of digestive tract; Z87.891 Personal history of nicotine dependence
CPT/HCPCS: 74177; 80053; 83690; 84702; 85027; 99281; 99285; J2405; J3010; J7030

== ENCOUNTER 2017-11-01 19:45 | Emergency (ER) | payer OTHER ==
[~2017-11-01] VITALS: Ht 170.2 cm; Wt 80.6 kg
[~2017-11-01 19:45] MED LIST changes: +ULTRAM50 MG PO
[2017-11-01 19:54] VITALS: BP 127/100
[2017-11-01 20:25] LABS: HEMATOCRIT 33.2 % (36.0-46.0); HEMOGLOBIN 10.7 G/DL (11.9-15.5); MCH 29.5 PG (29.0-34.0); MCHC 32.2 G/DL (30.0-36.0); MCV 91.5 FL (83-99); PLATELET COUNT 338 K/uL (156-360); RBC DIS.WIDTH-CV 14.9 % (11.8-14.6); RBC DIS.WIDTH-SD 50.4 % (39-53); RED BLOOD COUNT 3.63 M/uL (3.80-5.20); WHITE BLOOD COUNT 7.4 K/uL (4.1-10.2)
[2017-11-01 20:44] LABS: ALBUMIN 4.4 g/dL (3.2-4.8)
[2017-11-01 20:45] LABS: CHLORIDE 104 mEq/L (99-109); POTASSIUM 4.2 mEq/L (3.7-5.4); SODIUM 139 mEq/L (136-147)
[2017-11-01 20:47] LABS: GLUCOSE 95 mg/dL (70-99); TOTAL PROTEIN 7.9 g/dL (6.4-8.3)
[2017-11-01 20:49] LABS: TOTAL BILIRUBIN 0.2 mg/dL (0.0-1.0)
[2017-11-01 20:50] LABS: ALKALINE PHOSPHATASE 84 IU/L (3-129)
[2017-11-01 20:51] LABS: CREATININE 1.2 mg/dL (0.6-1.3); GFR ESTIMATE (CALCULATED) > 59 mL/min/
[2017-11-01 20:52] LABS: AST (GOT) 20 IU/L (2-34); UREA NITROGEN (BUN) 12 mg/dL (9-23)
[2017-11-01 20:53] LABS: ALT (GPT) 11 IU/L (3-49)
[2017-11-01 20:54] LABS: LIPASE 30 U/L (1.0-51.0)
[2017-11-01 21:01] LABS: QUANTITATIVE HCG < 4.0 MIU/ML
== END 2017-11-01 22:35 | disposition home or self-care (01) ==
LOC: RME 19:45 → EME 19:45 → RME 22:35
DX: R10.9 Unspecified abdominal pain (principal); Z85.038 Personal history of other malignant neoplasm of large intestine; Z93.3 Colostomy status; J45.909 Unspecified asthma, uncomplicated; E11.9 Type 2 diabetes mellitus without complications; K21.9 Gastro-esophageal reflux disease without esophagitis; N18.9 Chronic kidney disease, unspecified; F32.9 Major depressive disorder, single episode, unspecified; F41.9 Anxiety disorder, unspecified; F31.9 Bipolar disorder, unspecified; I25.2 Old myocardial infarction; Z93.2 Ileostomy status; Z87.442 Personal history of urinary calculi; Z87.440 Personal history of urinary (tract) infections; Z86.73 Personal history of transient ischemic attack (TIA), and cerebral infarction without residual deficits; Z87.891 Personal history of nicotine dependence; Z79.4 Long term (current) use of insulin; Z90.49 Acquired absence of other specified parts of digestive tract; Z88.5 Allergy status to narcotic agent; Z88.1 Allergy status to other antibiotic agents; Z88.6 Allergy status to analgesic agent
CPT/HCPCS: 80053; 81003; 83690; 84702; 85027; 99281; 99285; J2405; J3010; J7030

== ENCOUNTER 2017-11-08 17:38 | Emergency (ER) | payer OTHER ==
[~2017-11-08] VITALS: Ht 170.2 cm; Wt 80.8 kg
[2017-11-08 19:02] LABS: HEMATOCRIT 33.1 % (36.0-46.0); HEMOGLOBIN 10.9 G/DL (11.9-15.5); MCH 29.7 PG (29.0-34.0); MCHC 32.9 G/DL (30.0-36.0); MCV 90.2 FL (83-99); PLATELET COUNT 267 K/uL (156-360); RBC DIS.WIDTH-CV 14.8 % (11.8-14.6); RBC DIS.WIDTH-SD 49.5 % (39-53); RED BLOOD COUNT 3.67 M/uL (3.80-5.20); WHITE BLOOD COUNT 16.4 K/uL (4.1-10.2)
[2017-11-08 19:20] LABS: ALBUMIN 3.8 g/dL (3.2-4.8); CHLORIDE 102 mEq/L (99-109); SODIUM 136 mEq/L (136-147)
[2017-11-08 19:22] LABS: GLUCOSE 84 mg/dL (70-99)
[2017-11-08 19:23] LABS: TOTAL PROTEIN 7.6 g/dL (6.4-8.3)
[2017-11-08 19:26] LABS: CREATININE 1.1 mg/dL (0.6-1.3); GFR ESTIMATE (CALCULATED) > 59 mL/min/; TOTAL BILIRUBIN 0.3 mg/dL (0.0-1.0)
[2017-11-08 19:27] LABS: UREA NITROGEN (BUN) 10 mg/dL (9-23)
[2017-11-08 19:30] LABS: LIPASE 6 U/L (1.0-51.0)
[2017-11-08 19:32] LABS: ALKALINE PHOSPHATASE 123 IU/L (3-129); ALT (GPT) 31 IU/L (3-49); AST (GOT) 35 IU/L (2-34)
[2017-11-08 19:36] LABS: QUANTITATIVE HCG < 4.0 MIU/ML
[2017-11-08 22:39] LABS: APPEARANCE CLEAR ((CLEAR)); BILIRUBIN NEGATIVE; BLOOD SMALL; COLOR STRAW ((YELLOW)); GLUCOSE (STRIP) NEGATIVE; KETONES NEGATIVE; LEUKOCYTES MODERATE; NITRITE NEGATIVE; PROTEIN (STRIP) NEGATIVE; UROBILINOGEN 0.2 MG/DL (0.2-1.0)
[2017-11-08 22:41] LABS: SPECIFIC GRAVITY > 1.060 (1.000-1.030)
[2017-11-08 22:51] LABS: BACTERIA NONE SEEN /HPF; EPITHELIAL CELLS 1+ /HPF; MUCUS NONE SEEN /LPF; RED BLOOD CELLS 0-5 /HPF (0-5); UCUL ADDED? YES; WHITE BLOOD CELLS 15-20 /HPF (0-5)
[2017-11-08] MEDS ORDERED: LANTUS 3 M100 UNITS1 SC (23:38)
[2017-11-08] MEDS ORDERED: KLONOPIN2 MG PO (23:41)
[2017-11-08] MEDS ORDERED: PROTONIX40 MG PO (23:44)
[2017-11-08] MEDS ORDERED: LO-DOSE ASPIRIN81 M2 PO (23:45)
[2017-11-09] MEDS ORDERED: CIPRO500 MG PO (00:24)
[2017-11-09 01:08] VITALS: BP 131/65
== END 2017-11-09 01:09 | disposition left against medical advice (07) ==
LOC: EME 17:38
DX: N12 Tubulo-interstitial nephritis, not specified as acute or chronic (principal); R59.1 Generalized enlarged lymph nodes; K50.90 Crohn's disease, unspecified, without complications; E11.22 Type 2 diabetes mellitus with diabetic chronic kidney disease; N18.9 Chronic kidney disease, unspecified; Z79.4 Long term (current) use of insulin; I25.2 Old myocardial infarction; J45.909 Unspecified asthma, uncomplicated; Z85.038 Personal history of other malignant neoplasm of large intestine; Z85.51 Personal history of malignant neoplasm of bladder; Z90.49 Acquired absence of other specified parts of digestive tract; Z93.2 Ileostomy status; Z87.442 Personal history of urinary calculi; Z86.73 Personal history of transient ischemic attack (TIA), and cerebral infarction without residual deficits; Z79.82 Long term (current) use of aspirin; Z79.891 Long term (current) use of opiate analgesic; Z87.891 Personal history of nicotine dependence; Z53.20 Procedure and treatment not carried out because of patient's decision for unspecified reasons
CPT/HCPCS: 74177; 80053; 81003; 83605; 83690; 84702; 85027; 87040; 87077; 87086; 87186; 99281; 99285; J2405; J3010; J7030